=== PATIENT | male | born 1980 | race Caucasian/White ===

== ENCOUNTER 2017-06-02 14:45 | Emergency (ER) | payer SELFPAY ==
[2017-06-02 14:59] VITALS: BP 105/65; PULSE 93; RESP 16; TEMP 97.7; O2SAT 96
--- NOTE | 2017-06-02 15:14 | EDPHY ---
H & P Time Seen by Provider: 06/02/17 14:54 HPI/ROS: This patient complains of a sore throat and noticed some white spots on his tonsils concern for potential strep prompting his visit today. He came here by private vehicle and he reports 3 days of fatigue and 2 days of sore throat of mild intensity. He has associated odynophagia and reports some improvement from ibuprofen that he took this morning. No other exacerbating factors. He had subjective fevers yesterday that seems to have resolved today. ROS: Constitutional as per HPI HEENT: Reports mild coryza. No foot sinus pain. Mild left ear pain yesterday that has resolved. Pulmonary: No cough Cardiovascular: No complaints new line GI: No nausea vomiting or abdominal pain Integumentary: No skin rash Musculoskeletal: He complains of myalgias diffusely-mild. 7 point ROS is otherwise negative. Past Medical/Surgical History: Otherwise healthy Smoking Status: Current every day smoker Physical Exam: Physical Exam Vital signs are normal. General: No acute distress HEENT: Nose: Clear discharge bilaterally. No sinus tenderness to percussion. Ears: External canals and tympanic membranes are clear with no erythema or abnormal findings bilaterally. Oropharynx: Mild erythema . No exudates . No dysphonia. No drooling or stridor. Eyes: Pupils equal and react to light. Extraocular motions are intact. Neck: Supple with no meningismus. No lymphadenopathy Lungs: Clear to auscultation bilaterally with no rales, rhonchi or wheeze. No respiratory distress. Cardiac: Regular rate and rhythm with no murmur gallop or rub Skin: No rash or pallor. Neuro: Alert with no focal deficits noted. Initial differential diagnosis: Viral pharyngitis, strep pharyngitis, viral URI Constitutional: Initial Vital Signs Temperature (C) 36.5 C 06/02/17 14:48 Heart Rate 93 06/02/17 14:48 Respiratory Rate 16 06/02/17 14:48 Blood Pressure 105/65 06/02/17 14:48 O2 Sat (%) 96 06/02/17 14:48 O2 Delivery Mode Room Air Allergies/Adverse Reactions: fish Allergy (Uncoded 06/02/17 14:52) Pt reports throat swelling Home Medications: Medication Instructions Recorded No Medications [NO HOME 1 ea [facility] [place] 06/23/11 MEDICATIONS] MDM/Departure - MDM Diagnostics: Rapid strep is negative ED Course/Re-evaluation: I counseled patient regarding viral pharyngitis - Depart Disposition: Home, Routine, Self-Care Clinical Impression: Viral pharyngitis Condition: Good Instructions: Pharyngitis (ED) Additional Instructions: Diagnosis: Viral pharyngitis Plan: Ibuprofen Tylenol for discomfort if needed Symptoms should gradually improve over the next 3-7 days. Return for any significant worsening despite treatment plan. Stand Alone Forms: Work Excuse Referrals: NONE *PRIMARY CARE P,. [Primary Care Provider] - As per Instructions William Alfonso [place] [place] - As per Instructions
== END 2017-06-02 15:20 | disposition home or self-care (01) ==
LOC: CED 14:45
DX: J02.8 Acute pharyngitis due to other specified organisms (principal); B97.89 Other viral agents as the cause of diseases classified elsewhere; F17.200 Nicotine dependence, unspecified, uncomplicated
CPT/HCPCS: 87880-PO